=== PATIENT | female | born 2000 | race Caucasian/White ===

== ENCOUNTER 2021-11-21 16:56 | Emergency (ER) | payer OTHER ==
[2021-11-21 21:01] LABS: RED BLOOD COUNT 4.95 M/UL (4.00-5.10); WHITE BLOOD COUNT 6.7 K/UL (4.5-11.0)
[2021-11-21 21:27] LABS: BUN/CREATININE RATIO 13 (0-10)
[2021-11-21] MEDS ORDERED: IBUPROFEN800 MG PO (23:24)
[2021-11-21] MEDS ORDERED: CYCLOBENZAPRINE10 MG PO (23:24)
== END 2021-11-21 23:34 | disposition home or self-care (01) ==
LOC: ER1 16:56
PROVIDERS: Emergency Medicine
DX: S16.1XXA Strain of muscle, fascia and tendon at neck level, initial encounter (principal); S60.211A Contusion of right wrist, initial encounter; S20.214A Contusion of middle front wall of thorax, initial encounter; S30.1XXA Contusion of abdominal wall, initial encounter; F17.290 Nicotine dependence, other tobacco product, uncomplicated; V49.50XA Passenger injured in collision with unspecified motor vehicles in traffic accident, initial encounter; Y92.410 Unspecified street and highway as the place of occurrence of the external cause
CPT/HCPCS: 71260; 72125; 73110; 80053; 84703; 85025; 99284; Q9967